=== PATIENT | male | born 2000 | race Caucasian/White ===

== ENCOUNTER 2023-07-01 10:48 | Outpatient (AMB) | payer OTHER, SELFPAY ==
--- NOTE | 2023-07-01 10:50 | MHC.OFFWIV ---
Intake Vital Signs 07/01/23 10:53 Height 5 ft 10 in Weight 140 lb BMI 20.1 BP 108/66 Blood Pressure Location Lt brachial Position Sitting Pulse 86 Pulse Source Pulse Oximeter Temp 97.5 F Temp Source Oral Pulse Oximetry (%) 99 Oxygen Delivery Method Room Air Intake Visit Reasons: [employer] nausea light headed Intake Note: Patient here for Nausea and dizziness. denies any cough, body aches, chills etc. Patient Tobacco Use Status: Never used Tobacco Allergies No Known Allergies Allergy (Unverified 07/01/23 10:53) Do you need a note to return to daycare/school/sports/work: Yes HPI HPI Comments History of Present Illness Details He presents to office with nausea/vomiting At drill at [employer] [place] No hx of belly abdominak Started this am Upset, no sharp pains No fevers He has not tried anything for it He denies syncope, LOC or HT He tried to particupate in drill but was dizzy He denies eating/drinking since last night He vomited minimal, more nausea No diarrhea PFSH Social History Patient Tobacco Use Status: Never used Tobacco Review of Systems Const Denies body aches, Denies chills, Reports fatigue, Denies fever(s) and Denies headache(s) ENT Reports dizziness (when standing during drill. No other time), Denies headache(s), Denies nasal congestion and Denies sore throat Card Denies chest pain and Denies dyspnea Resp Denies dyspnea GI Reports abdominal pain (aching), Denies constipation, Denies diarrhea, Reports nausea and Reports vomiting Neuro Reports dizziness (when standing during drill. No other time), Denies headache(s) and Denies lack of coordination Endo Reports fatigue Physical Exam Vital Signs: Last Vital Signs Temp 97.5 F 07/01/23 10:53 Pulse 86 07/01/23 10:53 BP 108/66 07/01/23 10:53 Pulse Ox 99 07/01/23 10:53 Oxygen Delivery Method Room Air 07/01/23 10:53 BMI result Body Mass Index 20.1 General: Non-toxic, NAD. Speaking full sentences. Skin: Warm dry throughout Eye: EOMI HENT: Bilateral canals clear. TM non-erythematous, non-bulging. No TM perforation or hemotympanum noted. Respiratory: CTA bilaterally. No wheezes, rales or rhonchi Cardiac: RRR. No murmur Abdominal: BS present. Non-tender to palpation MSK: Full ROM extremities. Neurology: A/O. No aphasia or facial droop. Gait without abnormality Psych: Good mood and affect Assessment & Plan Assessment & Plan (1) Acute nausea with nonbilious vomiting: Code(s): R11.2 - Nausea with vomiting, unspecified Plan: Patient seen and evaluated. Non-toxic appearing and no acute abdomen Zofran to pharmacy Increase fluids/rest Drill note given Discussed need to go to ED with any onset abdominal pain, syncope etc Patient gave verbal understanding and had no additional questions or concerns at time of discharge All questions answered Medications: New ondansetron 4 mg PO Q8H PRN 10 tabs 0RF nausea and vomiting Coding Level of Care Code New Pt Level 3 (49820) Diagnoses Acute nausea with nonbilious vomiting R11.2
[2023-07-01 10:53] VITALS: BP 108/66; PULSE 86; TEMP 36.4; O2SAT 99; BMI 20.1
== END 2023-07-01 11:18 | disposition home or self-care (01) ==
PROVIDERS: Visit Provider Physician Assistant
DX: R11.2 Nausea with vomiting, unspecified (principal)
CPT/HCPCS: 99051; 99203